=== PATIENT | male | born 1995 | race Two or more races ===

== ENCOUNTER 2023-08-14 01:04 | Emergency (ER) | payer OTHER ==
[~2023-08-14] VITALS: Ht 182.9 cm; Wt 97.5 kg
[2023-08-14 03:51] LABS: HEMATOCRIT 46.3 % (39.0-48.0); HEMOGLOBIN 15.6 g/dL (13-16.00); MEAN CELL VOLUME 84.6 fL (80.0-100.00); MEAN CORPUSCULAR HEMOGLOBIN 28.6 pg (27.00-32.0); MEAN CORPUSCULAR HGB CONC 33.8 g/dl (32.0-36.0); PLATELET COUNT 250 K/uL (150-450); RED BLOOD COUNT 5.47 M/uL (4.00-6.00); RED CELL DISTRIBUTION WIDTH 13.3 % (11.5-14.5)
[2023-08-14 03:58] LABS: PH,URINE 5.5 (5.0-8.0); URINE APPEARANCE Clear; URINE BILIRRUBIN Negative (NEGATIVE); URINE BLOOD Trace; URINE COLOR Yellow; URINE GLUCOSE Negative (NEGATIVE); URINE LEUKOCYTE Negative; URINE NITRATE Negative; URINE PROTEIN Trace (NEGATIVE)
[2023-08-14 03:59] LABS: URINE EPITHELIAL CELLS 5.5 uL (0.0-38.8); URINE RBC 9.4 uL (0.0-20.8); URINE WBC 5.3 uL (0.0-23.2)
[2023-08-14 04:13] LABS: CALCIUM 9.4 mg/dL (8.5-10.1); CREATININE SERUM 1.29 mg/dL (0.70-1.30); GFR 67.32; POTASSIUM 4.04 mEq/L (3.5-5.1)
== END 2023-08-14 10:11 | disposition home or self-care (01) ==
LOC: ER 01:04
PROVIDERS: General Practice
DX: K52.89 Other specified noninfective gastroenteritis and colitis (principal)